=== PATIENT | female | born 1940 | race Caucasian/White ===

== ENCOUNTER 2017-01-04 15:38 | Inpatient (IN) | payer MEDICARE, BC ==
[~2017-01-04] VITALS: Ht 170.2 cm; Wt 178.1 kg
--- NOTE | ~2017-01-04 | WND ---
ADMIT: 01/04/2017 RM/LOC: 428 [facility] MR#: [id number] [id number] [address] [place] [address] W[facility] Care Clinic SEX: F AGE: 76 : 1940 DATE OF VISIT: 01/08/2017 TIME IN: 0925 hours. TIME OUT: 0935 hours. REASON FOR VISIT: Evaluation and treatment of skin concerns. HISTORY OF PRESENT ILLNESS: This is a 76-year-old female, who had been seen previously by Wound Care. She was admitted to [facility] on 01/04/2017, with weakness and mental status change. She had been admitted to [facility] at the end of October and once in November. She has been set up for dialysis and transfer to an outside facility. She was there for few weeks and then felt like she is getting progressively weaker. Therefore, she is now at [facility]. She was admitted with concerns about weakness. She went to dialysis and found to have blood pressures in the 80s over 30s, so sent to the ER and was given fluids. She was admitted ultimately to the ICU for concerns about fluid overload. She was started on pressors. She is now off her pressors. She does have routine hemodialysis. Wound Care was requested to evaluate her for skin concerns. Wound Care stopped by yesterday, but she requested we come back today. In her previous visit, in November, she was diagnosed with moisture-associated skin breakdown to abdominal folds and buttocks. She also had a small stage II pressure ulceration on her buttocks upon admission. PAST MEDICAL HISTORY: 1. Chronic kidney disease. 2. End-stage renal disease. 3. Recent myocardial infarction. 4. Atrial fibrillation. 5. Severe mitral regurgitation. 6. Moderate mitral stenosis. 7. Moderate aortic stenosis. 8. Congestive heart failure. 9. Bvi-hbzhbks-dxleabwlf diabetes mellitus, type 2. 10.Gout. 11.Hypertension. 12.Vitamin D deficiency. 13.Iron deficiency. 14.Urge incontinence. 15.Urinary tract infections. 16.Sepsis. 17.Shock. 18.Intertrigo. ALLERGIES: Bactrim, tape, laundry soap, sulfa, and sulfamethoxazole and trimethoprim. CURRENT MEDICATIONS: 1. Diflucan. ADMIT: 01/04/2017 RM/LOC: 428 [facility] MR#: [id number] [id number] [address] [place] [address] Wound Care Clinic SEX: F AGE: 76 : 1940 2. Feosol. 3. Lexapro. 4. Lipitor. 5. MiraLax. 6. Plavix. 7. Renagel. 8. Therapeutic multivitamins. 9. Vitamin D. 10.Zyloprim. 11.Flu vaccine upon dismissal. 12.NovoLog. 13.Mycostatin powder. 14.Normal saline. P.R.N. medications: 1. Colace. 2. Glutose. 3. Maalox. 4. MiraLax. 5. Tylenol. 6. Tylenol suppository. 7. Ultram. 8. Xanax. 9. DuoNeb. 10.Glucagon. 11.Dulcolax suppository. 12.Nitrostat. 13.Mycostatin powder. 14.Nitro-Bid. SOCIAL HISTORY: Currently living at [facility]. She has a college degree. Former smoker, smoking a pack a day for 5 years. Quit over 50 years ago. No illicit drug use. FAMILY HISTORY: Per records significant for heart disease, cancer, hypertension, and diabetes. REVIEW OF SYSTEMS: She is examined in her hospital room, where she is on a bariatric pressure relief mattress. She is awake, alert, and oriented x3. She continues to have a cough. She said sometimes it is productive. Sometimes it makes her nauseous. She denies any current fever or chills. No vomiting. Appetite is poor. Denies any abdominal discomfort. Denies any discomfort in her groin folds or her buttocks. PHYSICAL EXAMINATION: VITAL SIGNS: 97.5, 70, 20, blood pressure 108/63, and O2 sats on oxygen per nasal cannula 97%. Focused exam to her pannus folds show few residual openings. On the right mid pannus, is an opening that measures 0.3 x 1.2 with a depth of 0.2 cm. It does ADMIT: 01/04/2017 RM/LOC: 428 [facility] MR#: [id number] [id number] [place] [address] Wound Care Clinic SEX: F AGE: 76 : 1940 have a red wound base. No surrounding erythema or induration. Toward her right groin, she has 2 open areas, one that measures 0.1 x 3.5 cm, a slit with a red base; and 0.1 x 0.1 x 0.1 with red base. On the left pannus, she has a small slit that measures 0.1 x 0.3 with a depth of 0.1 cm. Behind her left knee, is a slit that measures 0.2 x 0.9 with a depth of 0.1 cm with a red base. None of these areas have any surrounding erythema or induration. On her left buttock, is a small ulceration that measures 0.3 x 0.3 with a depth of 0.1 cm with a red moist wound base. No surrounding erythema or induration. She does have some hyperpigmentation noted in her perineal area. ASSESSMENT: 1. Moisture-associated skin breakdown pannus folds with yeasty overlay. 2. Healing stage II pressure ulceration, left buttocks. TREATMENT AND PLAN: We will continue with position changes every 15 minutes while in the chair. I emphasized the importance of her shifting her weight. Chair air cushion when she is up. Bariatric pressure relief mattress. Sensi- Care to her left buttock 4 times a day and p.r.n. bowel movements. Requested that she be positioned off her buttocks when she is in bed and change positions every 2 hours. Thank you for this referral. Mary Ch APRN/ aldo JOB #: [id number] CC: Girish Sears MD, Attending Physician Girish Sears MD, Family Physician
[~2017-01-04 15:38] MED LIST: BENEMID DPS500 MG PO; CARVEDILOL25 MG PO; CARVEDILOL3.125 MG PO; COUMADIN5 MG PO; CULTURELLE1 CAP PO; DITROPAN-DPS5 MG PO; DUONEB DPS3 ML IH; FEOSOL-DPS325 MG PO; IMDUR DPS30 MG PO; IMDUR DPS60 MG PO; JANUVIA50 MG PO; LASIX DPS80 MG PO; LEXAPRO DPS10 MG PO; LIPITOR DPS20 MG PO; LOVENOX DP30 MG/0.3 SQ; MIRALAX PACKET17 GM PO; MYCOSTATIN PWD15 GM TP; MYLICON DPS80 MG PO; NITROSTAT0.4 MG SL; NOVOLOG100 UNIT/2 SQ; OMNICEF DPS300 MG PO; PLAVIX75 MG PO; PRILOSEC DPS20 MG PO; PROTONIX40 MG PO; PULMICORT0.5 MG/2 M IH; SENOKOT DPS8.6 MG PO; SENOKOT S1 TAB PO; THERA1 EACH PO; TYLENOL #3 DPS1 TAB PO; TYLENOL DPS325 MG PO; ULTRAM DPS50 MG PO; VITAMIN D35000 UNI1 PO
--- NOTE | 2017-01-06 16:55 | HP ---
ADMIT: 01/04/2017 RM/LOC: 309 [facility] MR#: [id number] [id number] [address] [place] [address] History and Physical SEX: F AGE: 76 : 1940 DATE OF SERVICE: CHIEF COMPLAINT: Weakness, mental status change. HISTORY OF PRESENT ILLNESS: This is a 76-year-old female with a past history of CHF resulting in end-stage renal disease recently. She was recently admitted to this facility in the end of October and then once in November about a month ago. Since her last discharge here, she had been set up for dialysis and so transferred out to an outside facility in [facility]. She reports she was there for a few weeks and while being there, she did not walk very much, and so she is feeling very weak. She is now at a alf. She is a little bit frustrated by this, but her main complaint today was weakness. She went to dialysis today and at dialysis, she was found to have blood pressure of 80s over 30s, so they sent her to the emergency room and actually gave her about 600 mL of fluid on dialysis and then in the ER, gave her about 2 L slowly. After each 0.5 L, blood pressure would get up above 100 and then fall back down in 80s. She would become a little less coherent during this time. She ultimately was admitted to the ICU with some concern for fluid overload. Her oxygen saturations have got down a little bit and was needing a couple of liters of oxygen. So then, we started her on pressors to keep her blood pressure up without giving her too much extra fluid. Other complaint, she has also had some chest pain on and off. She describes it as an elephant sitting on the left side of her chest, so far it is not radiating. She said a few weeks ago, she did have the same type of pain, but radiated to her arm and that she was told she had a heart attack at that time. PAST MEDICAL HISTORY: Reviewed and unchanged from December 06 except for now instead of chronic kidney disease, she has end-stage renal disease. She also had a recent myocardial infarction. MEDICATION LIST: Do not have the active one currently. SOCIAL HISTORY: Her 's name is Jim and he is hard of hearing. For fun, she enjoys making clothes. Other complete review of systems obtained and negative except as above. PHYSICAL EXAMINATION: GENERAL: This is a 76-year-old female. She is in no apparent distress. She is alert. She is oriented. Very pleasant. HEENT: She is wearing glasses. Her pupils are equal, round, and reactive to light and accommodation. Her extraocular muscles are intact. Her throat is dry but clear. NECK: Supple. HEART: Irregularly regular, 2/6 systolic murmur. LUNGS: Diminished bilaterally. ABDOMEN: Obese. She is nontender. Normal bowel sounds. LOWER EXTREMITIES: She has trace pitting edema, but she has very obese lower extremities diffusely. She can move all extremities equally, but she is quite weak. I did not ask her to test her gait for fear of problems related to that. ADMIT: 01/04/2017 RM/LOC: 309 [facility] MR#: [id number] [address] [place] [id number] [place] [address] History and Physical SEX: F AGE: 76 : 1940 SKIN: She has intertrigo in her skin folds. She has stage II behind her thighs bilaterally. LABORATORY AND X-RAY DATA: CBC with a white count of 6.9, hemoglobin 9.8, and platelets of 169. Urinalysis was hazy with 2+ protein, 3+ leukocyte esterase, 295 white cells, and many white cell clumps. She had no squamous epithelial. She had rare budding yeast. INR is 2.75. CMP shows a sodium of 133, potassium 3.6, BUN of 17, creatinine 3.3, carbon dioxide 31, albumin 2.8. Troponin 0.33. CK is 16. Chest x-ray is clear. ASSESSMENT: 1. Looks like a urinary tract infection with sepsis and shock. It maybe that her low blood pressure is not due to infection. Her urine may have some colonization, and we will see what her culture shows. She does not make any urine and has not urinated for quite some time and has no burning with urination or any symptoms that way. She does have a lot of groin redness and irritation intertrigo however. 2. Atrial fibrillation with anticoagulation. 3. End-stage renal disease. 4. Intertrigo. 5. Coronary artery disease with chest pain. 6. Obstructive sleep apnea. 7. Diabetes. PLAN: We will give her treatment for intertrigo and do some nystatin powder as well. Use BiPAP per home settings. Sliding scale insulin. We will follow her enzymes, lactic acid, and procalcitonin carefully. We will continue on pressors with norepinephrine for now and slowly give her some fluid. We will reassess in another 12 hours. Girish Sears MD/ aldo JOB #: [id number] CC: Girish Sears, Attending Physician Girish Sears, Family Physician
--- NOTE | 2017-01-09 08:00 | CO ---
ADMIT: 01/04/2017 RM/LOC: 309 [facility] MR#: [id number] [id number] [address] [place] [address] Consultation SEX: F AGE: 76 : 1940 ATTENDING PHYSICIAN: Girish Sears CONSULTING PHYSICIAN: Danii Trujillo MD HISTORY OF PRESENT ILLNESS: Tova is a 76-year-old white female, who gets her hemodialysis at [facility], who while in dialysis yesterday had hypotension. She was brought to the emergency room here in [place] for continued evaluation and care. In the ER, her sodium was 133, potassium 3.6, BUN and creatinine 21 and 3.7, albumin 2.8, CK 16, INR 2.51. White count of 8.5, hemoglobin 9.8, platelet count 143,000. Lactic acid 1.4. Urinalysis, showed 3+ leukocytes, and many wbc's. Other cultures this morning are negative. Chest x-ray showed cardiomegaly with improved aeration. At this time, we are asked to see and follow for renal replacement. She is currently on a norepinephrine drip at 8 mcg. Maintaining a systolic blood pressure of 90-110. She is in atrial fibrillation with rate control. PAST MEDICAL HISTORY: 1. History of morbid obesity. 2. End-stage renal disease, on hemodialysis. She is unable to walk. 3. Acute IL in October. 4. History of congestive heart failure. 5. History of PEs in 2001. 6. Obstructive sleep apnea, on CPAP. 7. Carpal tunnel surgery. 8. Anxiety. 9. Gout. 10.Diabetes. 11.Atrial fibrillation, on chronic anticoagulation. 12.Chronic back pain. SOCIAL HISTORY: She currently lives at a [facility]. FAMILY HISTORY: Noncontributory. REVIEW OF SYSTEMS: She had reported chest pain, chest pressure, lightheadedness. No shaking chills. No abdominal pain or abdominal discomfort. She is anuric, but placement of catheter and urine culture showed evidence of leukocytes and wbc's. PHYSICAL EXAMINATION: GENERAL: She is alert. HEENT: Exam is normal. HEART: Regular rhythm slightly irregular. LUNGS: Clear but diminished to auscultation. ABDOMEN: Obese, soft, positive bowel sounds present. EXTREMITIES: Large trace edema. ADMIT: 01/04/2017 RM/LOC: 309 [facility] MR#: [id number] [address] [address] [place] [address] Consultation SEX: F AGE: 76 : 1940 ASSESSMENT: Admission of a 76-year-old white female with: 1. Morbid obesity. 2. Sepsis secondary to questionable urinary tract infection. 3. End-stage renal disease, on hemodialysis. 4. History of myocardial infraction in October of this past year. 5. History of pulmonary embolisms. 6. History of obstructive sleep apnea. At this time, she does not need renal replacement as she is on pressors, and her electrolytes are within normal limits. We will continue to follow daily. Dr. Dias will see her on Saturday. If she has abnormalities of electrolytes, she may need hemodialysis. We will continue to follow with her primary team. Danii Trujillo MD/ aldo JOB #: [id number] CC: Girish Sears, Attending Physician Girish Sears, Family Physician
[2017-01-09] MEDS ORDERED: DIFLUCAN DPS100 MG PO (10:43)
[2017-01-09] MEDS ORDERED: FEOSOL-DPS325 MG PO (10:43)
[2017-01-09] MEDS ORDERED: RENAGEL800 MG PO (10:44)
[2017-01-09] MEDS ORDERED: THERAPEUTIC MUL1 TAB PO (10:44)
[2017-01-09] MEDS ORDERED: VITAMIN D35000 UNI1 PO (10:45)
[2017-01-09] MEDS ORDERED: ZYLOPRIM100 MG PO (10:45)
[2017-01-09] MEDS ORDERED: FLU VACCINE IM (10:45)
[2017-01-09] MEDS ORDERED: MYCOSTATIN PWD15 GM TP (10:46)
[2017-01-09] MEDS ORDERED: NITROSTAT0.4 MG SL (10:48)
[2017-01-09] MEDS ORDERED: DULCOLAX-DPS5 MG PO (10:49)
[2017-01-09] MEDS ORDERED: DUONEB DPS3 ML IH (10:50)
[2017-01-09] MEDS ORDERED: PRILOSEC DPS20 MG PO (10:50)
[2017-01-09] MEDS ORDERED: ULTRAM DPS50 MG PO (10:51)
[2017-01-09] MEDS ORDERED: RENVELA800 MG PO (10:51)
[2017-01-09] MEDS ORDERED: MIRALAX PACKET17 GM PO (10:52)
[2017-01-09] MEDS ORDERED: TYLENOL DPS325 MG PO (10:52)
[2017-01-09] MEDS ORDERED: XANAX DPS0.5 MG PO (10:53)
== END 2017-01-08 11:39 | DRG 871 ==
LOC: ER 15:38 → 3ICU 18:10 → 4PCU 18:10 → 3ICU 01-06 11:55 → 4PCU 01-07 05:36
PROVIDERS: ADMIT Internal Medicine
PROC: 5A1D00Z (ICD-10-PCS; principal; 2017-01-07)
DX: B37.7 Candidal sepsis (principal); R65.21 Severe sepsis with septic shock; J96.01 Acute respiratory failure with hypoxia; I13.2 Hypertensive heart and chronic kidney disease with heart failure and with stage 5 chronic kidney disease, or end stage renal disease; L89.322 Pressure ulcer of left buttock, stage 2; N18.6 End stage renal disease; I50.32 Chronic diastolic (congestive) heart failure; E11.22 Type 2 diabetes mellitus with diabetic chronic kidney disease; I27.2 Other secondary pulmonary hypertension; Z68.44 Body mass index [BMI] 60.0-69.9, adult; B37.49 Other urogenital candidiasis; I25.2 Old myocardial infarction; B37.2 Candidiasis of skin and nail; L30.4 Erythema intertrigo; E66.01 Morbid (severe) obesity due to excess calories; K42.9 Umbilical hernia without obstruction or gangrene; D63.1 Anemia in chronic kidney disease; F41.9 Anxiety disorder, unspecified; M54.9 Dorsalgia, unspecified; I48.2 Chronic atrial fibrillation; I08.0 Rheumatic disorders of both mitral and aortic valves; I25.10 Atherosclerotic heart disease of native coronary artery without angina pectoris; N39.41 Urge incontinence; E55.9 Vitamin D deficiency, unspecified; M19.90 Unspecified osteoarthritis, unspecified site; M10.9 Gout, unspecified; G89.29 Other chronic pain; K21.9 Gastro-esophageal reflux disease without esophagitis; N31.9 Neuromuscular dysfunction of bladder, unspecified; G47.33 Obstructive sleep apnea (adult) (pediatric); Z86.711 Personal history of pulmonary embolism; Z87.891 Personal history of nicotine dependence